=== PATIENT | male | born 1965 | race Caucasian/White ===

== ENCOUNTER 2020-01-06 07:59 | Emergency (ER) | payer SELFPAY ==
[~2020-01-06] VITALS: Ht 165.1 cm; Wt 64.0 kg
[2020-01-06] MEDS ORDERED: SODIUM CHLORIDE 0.9% 1000ML BAG (SEPSIS BOLUS) IV ONE (08:15)
[2020-01-06] MEDS ORDERED: VANCOMYCIN 1 G PREMIX 200 ML IV ONE (09:00)
[2020-01-06] MEDS ORDERED: PIPERACILLIN/TAZ 3.375G PREMIX 50 ML IV ONE (09:00)
[2020-01-06 09:08] LABS: HEMATOCRIT. 26.5 % (42.0-52.0); HEMOGLOBIN. 8.1 g/dL (14.0-18.0); MEAN CORPUSCULAR HEMOGLOBIN 32.6 pg (28.0-32.0); MEAN CORPUSCULAR VOLUME 107.1 fL (80.0-94.0); MEAN PLATELET VOLUME 11.5 fl (7.4-10.4); PLATELET 130 x1000/uL (130-400); RED BLOOD CELL COUNT 2.47 mill/uL (4.7-6.1)
[2020-01-06 09:09] LABS: CLARITY URINE CLEAR (CLEAR); COLOR URINE DARK YELLOW (YELLOW); KETONES URINE TRACE (NEGATIVE); LEUKOCYTE ESTERASE URINE TRACE (NEGATIVE); NITRITE URINE NEGATIVE (NEGATIVE); OCCULT BLOOD URINE NEGATIVE (NEGATIVE); PROTEIN URINE 1+ (NEGATIVE); SPECIFIC GRAVITY URINE 1.022 (1.005-1.030)
[2020-01-06 09:10] LABS: CHLORIDE 96 mEq/L (98-107)
[2020-01-06 09:15] LABS: ETHANOL BLOOD 27 mg/dL
[2020-01-06 09:24] LABS: INR 1.6; PROTHROMBIN TIME 17.3 sec (9.6-11.0)
[2020-01-06] MEDS ORDERED: NOREPINEPHRINE 4MG/250ML PMX 250 ML IV STA (10:21)
[2020-01-06 10:33] LABS: PLATELET ESTIMATE NORMAL
[2020-01-06] MEDS ORDERED: ATROPINE SULFATE 1MG/10ML SYR ONE (10:49)
[2020-01-06] MEDS ORDERED: ATROPINE SULFATE 1MG/10ML SYR IV ONE (11:00)
[2020-01-06] MEDS ORDERED: AMIODARONE HCL 150 MG in DEXT 5% WATER 100 ML IV ONE (11:15)
[2020-01-06] MEDS ORDERED: SODIUM BICARBONATE 8.4% 1 MEQ/ML 50ML SYR IV ONE ×3 (11:17→11:30)
[2020-01-06] MEDS ORDERED: VASOPRESSIN 10 UNIT in SODIUM CHLORIDE 0.9% 99.5 ML STA (11:44)
[2020-01-06] MEDS ORDERED: VASOPRESSIN 10 UNIT in SODIUM CHLORIDE 0.9% 99.5 ML IV PRN (12:00)
[2020-01-06 12:34] LABS: MEAN CORPUSCULAR HEMOGLOBIN 33.5 pg (28.0-32.0); MEAN CORPUSCULAR VOLUME 107.5 fL (80.0-94.0); PLATELET 83 x1000/uL (130-400); RED BLOOD CELL COUNT 1.26 mill/uL (4.7-6.1); RED CELL DISTRIBUTION WIDTH 13.7 % (11.6-14.6)
[2020-01-06 12:41] LABS: HEMOGLOBIN. 4.2 g/dL (14.0-18.0)
[2020-01-06 12:42] LABS: HEMATOCRIT. 13.6 % (42.0-52.0)
[2020-01-06] MEDS ORDERED: NOREPINEPHRINE 4MG/250ML PMX 250 ML IV PRN (12:45)
[2020-01-06] MEDS ORDERED: ONDANSETRON HCL 4MG/2ML INJ IV PRN (13:00)
[2020-01-06] MEDS ORDERED: PANTOPRAZOLE SODIUM 40 MG/VIAL IV SCH (13:00)
[2020-01-06 13:21] LABS: PLATELET ESTIMATE DECREASED
[2020-01-06] MEDS ORDERED: SODIUM BICARBONATE 100 MEQ in DEXTROSE 5% WATER 1,000 ML IV SCH (13:30)
[2020-01-06] MEDS ORDERED: MORPHINE SULFATE 2 MG/ML CPJ (NOT FOR IM USE) IV PRN (13:30)
[2020-01-06] MEDS ORDERED: LORAZEPAM 2MG/ML CPJ IV PRN (13:30)
[2020-01-06 13:41] LABS: HEPATITIS B SURFACE ANTIGEN NEGATIVE
[2020-01-06] MEDS ORDERED: CEFEPIME 1,000 MG in DEXTROSE 5% WATER 50 ML IV SCH (14:00)
[2020-01-06] MEDS ORDERED: OCTREOTIDE 1,000 MCG in SODIUM CHLORIDE 0.9% 98 ML IV SCH ×4 (14:00)
[2020-01-06] MEDS ORDERED: PANTOPRAZOLE 80 MG in SODIUM CHLORIDE 0.9% 100 ML IV SCH (14:00)
[2020-01-06 14:05] VITALS: BP 65/26
[2020-01-06 14:10] LABS: HEPATITIS A AB IGM NEGATIVE (NEGATIVE)
[2020-01-07] MEDS ORDERED: CEFEPIME 1,000 MG in DEXTROSE 5% WATER 50 ML IV SCH (13:00)
== END 2020-01-06 14:39 | disposition expired ==
LOC: ER 07:59 → EDBD 07:59 → EDBEDREQ 11:31 → EDBEDREQSVC 11:31 → ER 14:39 → CANBEDREQ 14:45
DX: A41.9 Sepsis, unspecified organism (principal); R65.21 Severe sepsis with septic shock; J96.00 Acute respiratory failure, unspecified whether with hypoxia or hypercapnia; K92.2 Gastrointestinal hemorrhage, unspecified; G93.41 Metabolic encephalopathy; F32.9 Major depressive disorder, single episode, unspecified; R74.0 Nonspecific elevation of levels of transaminase and lactic acid dehydrogenase [LDH]; E86.1 Hypovolemia; E87.8 Other disorders of electrolyte and fluid balance, not elsewhere classified; E43 Unspecified severe protein-calorie malnutrition; F10.21 Alcohol dependence, in remission; D64.9 Anemia, unspecified; Z68.23 Body mass index [BMI] 23.0-23.9, adult; Z78.1 Physical restraint status; Z66 Do not resuscitate
CPT/HCPCS: 36415; 36556; 71045; 80053; 80320; 81003; 83036; 83605; 83690; 84145; 84484; 85025; 85610; 86705; 86709; 86803; 86850; 86900; 86901; 86920; 87040; 87086; 87340; 93005; 96365; 96366; 96367; 96368; 96375; 99291; J0282; J0461; J2270; J2405; J2543; J3370; J3490; J7030; J7050; J7060; C9113; J0692; J2354; J7070; P9016; G0480